=== PATIENT | male | born 1945 | race Caucasian/White ===

== ENCOUNTER 2018-03-24 03:09 | Outpatient (CLI) | payer MEDICARE, SELFPAY ==
[2018-03-24 11:48] LABS: Anion Gap 7.2 mmol/L (3-11); BUN 18 mg/dL (7-18); CO2 30.8 mmol/L (21.0-32.0); CREATININE 1.32 mg/dL (0.70-1.30); Calcium 9.8 mg/dL (8.5-10.1); Chloride 106 mmol/L (98-107); Estimated GFR 53.47 (mL/min/1.73m2); Glucose 83 mg/dL (70-100); Potassium 4.7 mmol/L (3.5-5.1); Sodium 144 mmol/L (136-145)
== END 2018-03-24 03:29 ==
PROVIDERS: PCP Family Medicine; Visit Provider Family Medicine
DX: I10 Essential (primary) hypertension (principal)
CPT/HCPCS: 36415; 80048

== ENCOUNTER 2019-01-01 02:24 | Outpatient (CLI) | payer MEDICARE, OTHER, SELFPAY ==
--- NOTE | 2019-01-01 14:09 | DI.US_ITS ---
EXAM: US RENAL CLINICAL HISTORY: PASSED KIDNEY STONES FOR FIRST TIME, CALCULUS OF KIDNEY,N20.0 TECHNIQUE: Ultrasound performed using standard protocol. COMPARISON: ABDOMEN ULTRASOUND (P) from 02/18/2012 FINDINGS: Right kidney measures 10.5 cm in length. The left kidney measures 10.4 cm in length. No stones or h ydronephrosis is seen. The prevoid bladder volume measures 323 cc. There is postvoid residual of 22 cc. No bladder calculi or bladder masses are seen. Both ureteral jets were visualized. The prosta te is enlarged with a volume of 67 cc. IMPRESSION: Enlarged prostate. No evidence of hydronephrosis or renal calculi.
== END 2019-01-01 02:44 ==
PROVIDERS: PCP Family Medicine; Visit Provider Family Medicine
DX: N20.0 Calculus of kidney (principal)
CPT/HCPCS: 76770

== ENCOUNTER 2019-03-29 00:17 | Outpatient (CLI) | payer MEDICARE, OTHER, SELFPAY ==
[2019-03-29 10:43] LABS: Anion Gap 5.8 mmol/L (3-11); BUN 21 mg/dL (7-18); CO2 32.2 mmol/L (21.0-32.0); CREATININE 1.25 mg/dL (0.70-1.30); Calculated LDL 122 mg/dL (<100); Chloride 106 mmol/L (98-107); Cholesterol 216 mg/dL (<200); Estimated GFR 56.78 (mL/min/1.73m2); Glucose 88 mg/dL (74-106); HDL Cholesterol 68 mg/dL (40-60); Potassium 4.8 mmol/L (3.5-5.1); Sodium 144 mmol/L (136-145); Triglyceride 133 mg/dL (<150)
== END 2019-03-29 00:37 ==
PROVIDERS: PCP Family Medicine; Visit Provider Family Medicine
DX: E78.00 Pure hypercholesterolemia, unspecified (principal); I10 Essential (primary) hypertension
CPT/HCPCS: 36415; 80048; 80061

== ENCOUNTER 2020-06-18 02:59 | Outpatient (CLI) | payer MEDICARE, OTHER, SELFPAY ==
[2020-06-18 12:29] LABS: HCT 43.3 % (40.0-50.0); MCH 29.9 pg (27.0-33.0); MCHC 32.3 % (32.0-36.0); MCV 92.5 fL (80-95); MPV 12.3 fL (8.0-11.0); Platelet Count 234 10^3/uL (130-400); RBC 4.68 10^6/uL (4.36-5.78); RDW 12.5 % (11.8-14.1); RDW-SD 42.7 fL; WBC 6.22 10^3/uL (4.4-10.8)
[2020-06-18 13:26] LABS: ALT 28 U/L (16-63); AST 15 U/L (15-37); Albumin 3.9 g/dL (3.4-5.0); Alkaline Phosphatase 89 U/L (46-116); Anion Gap 6.9 mmol/L (3-11); BUN 21 mg/dL (7-18); Bilirubin, Total 0.6 mg/dL (0.2-1.0); CO2 31.1 mmol/L (21.0-32.0); CREATININE 1.4 mg/dL (0.70-1.30); Calcium 9.9 mg/dL (8.5-10.1); Calculated LDL 109 mg/dL (<100); Chloride 106 mmol/L (98-107); Cholesterol 203 mg/dL (<200); Estimated GFR 49.68 (mL/min/1.73m2); Glucose 84 mg/dL (74-106); HDL Cholesterol 69 mg/dL (40-60); Potassium 4.9 mmol/L (3.5-5.1); Sodium 144 mmol/L (136-145); Total Protein 7.4 g/dL (6.4-8.2); Triglyceride 126 mg/dL (<150)
== END 2020-06-18 03:00 | disposition home or self-care (01) ==
LOC: LOS 02:59
PROVIDERS: PCP Family Medicine; Visit Provider Nurse Practitioner Family
DX: I10 Essential (primary) hypertension (principal); E78.00 Pure hypercholesterolemia, unspecified; R25.2 Cramp and spasm
CPT/HCPCS: 36415; 80053; 80061; 85027

== ENCOUNTER 2020-10-21 18:05 | Outpatient (CLI) | payer MEDICARE, OTHER, SELFPAY ==
--- NOTE | 2020-10-21 | DI.RAD_ITS ---
Exam(s) XR SHOULDER LT COMPLETE 2+V EXAM: XR SHOULDER LT COMPLETE 2+V CLINICAL HISTORY: questionable dislocated shoulder. TECHNIQUE: 2D digital imaging was performed. COMPARISON: No exams were available for comparison FINDINGS: BONES: No acute fracture is present. No bony destructive lesion is seen. The bones are osteopenic. JOINTS: The glenohumeral joint is intact. There is a grade 2 acromioclavicular joint separation. SOFT TISSUE: Normal. IMPRESSION: Left acromioclavicular joint separation. DATA REPOSITORY: RADIATION DOSE DELIVERED:
== END 2020-10-21 18:25 ==
LOC: DI 19:45
PROVIDERS: PCP Nurse Practitioner Family; Visit Provider Nurse Practitioner Family
DX: S43.102A Unspecified dislocation of left acromioclavicular joint, initial encounter (principal); X58.XXXA Exposure to other specified factors, initial encounter
CPT/HCPCS: 73030

== ENCOUNTER 2020-10-21 19:40 | Emergency (ER) | payer MEDICARE, OTHER, SELFPAY ==
[2020-10-21 19:48] VITALS: BP 158/82; PULSE 91; RESP 16; TEMP 36.8; O2SAT 98
--- NOTE | 2020-10-21 20:10 | ED.GENADUL_ITS ---
Discharge Plan Disposition Patient Disposition: HOME Condition: Stable Discharge Details Clinical Impression: Acromioclavicular joint separation Primary Care Provider: Jaiden Elizabeth ED Provider: Skye Rodgers Home Meds and New Rx's Prescriptions: Continued Alive Multivitamin PO RF: 0 cholecalciferol (vitamin D3) 1,000 unit capsule 1,000 unit PO DAILY RF: 0 lisinopril 10 mg tablet 10 mg PO DAILY Qty: 90 RF: 4 fluticasone propionate 50 mcg/actuation spray,suspension 2 spray NS DAILY Qty: 1 RF: 5 glucosamine [id number] 1 EACH tablet 1 ea PO BID RF: 0 Discharge Instructions Instructions: Acromioclavicular Separation (ED) Additional Instructions: X-ray shows separation of your acromioclavicular joint space. This is treated with sling. Please encourage rest, ice, elevation. Tylenol and/or ibuprofen as needed for discomfort. You will need follow-up with orthopedics, please call tomorrow to schedule follow-up appointment. If you develop any new or worsening symptoms please seek care urgently once again. Referrals: Edward Vidales MD [ [facility] STAFF PHYSICIAN] - Discharge Data Discharge Date/Time-TO BE ENTERED AT DEPARTURE: 10/21/20 20:30 Medical Decision Making Patient is a pleasant [id number] 75-year-old male presenting today with chief complaint of left shoulder injury. Patient was initially seen in urgent care. Outpatient x-ray was ordered. However, they have subsequently closed and patient was referred here for results and treatment. There is concern for pos sible dislocation. Patient was fit with a sling. Here the sling is comfortable and is helping with his pain. Injury occurred when he was playing golf head and excellently fell striking his left shoulder. He denies other injury the time of the incident. Denies hitting his head, no LOC. Denies any numbness or tingling. Denies any neck pain. On exam, patient appears nontoxic. He is swelling and deformity over the left AC joint. Neurovascularly intact. 2+ distal pulses. Axial nerve testing intact. X-ray reviewed by radiologist: FINDINGS: Bones/joints: No evidence of fracture. The glenohumeral joint is appropriately located. Acromial humeral space is maintained. The acromion is positioned inferior to the distal clavicle. The acromioclavicular joint approximately 9 mm wide, mildly abnormal. Coricoclavicular relationships are normal. Soft tissues: Normal. IMPRESSION: Acromioclavicular separation, grade 2. Discussed these findings with the patient. He will continue with sling. Will refer to orthopedics. I asked that he call tomorrow to schedule follow-up appointment. Encourage rest, ice, elevation. Tylenol and ibuprofen as needed for discomfort. All other questions or concerns were addressed and he is in agreement with this plan. HPI General Mode of arrival: ambulatory . Date/Time Provider Initiated Documentation: 10/21/20 20:02 . Limitations to Documentation: no limitations . Information obtained by: patient, RN/MD (called by urgent care provider) and RN notes reviewed . History of Present Illness 75 year old M presents to the emergency department with the chief complaint of left shoulder injury, described as mild, with intensity rated at 1. Quality is described as aching, and is localized to the left and upper extremity. Patient reports no radiation. Patient started experiencing this hour(s) and it has been constant. Immobilization improves symptom(s), Movement worsens symptoms . Patient notes no other symptoms.. Patient did receive the following treatments prior to arrival, other (sling) Related Data Home Medications Medication Instructions Recorded Confirmed glucosamine [id number] 1 ea PO BID 02/15/13 10/21/20 Alive Multivitamin PO 03/21/18 08/14/20 cholecalciferol (vitamin D3) 25 1,000 unit PO DAILY 03/21/18 10/21/20 mcg (1,000 unit) capsule fluticasone propionate 50 2 spray NS DAILY #1 inh 07/31/20 10/21/20 mcg/actuation nasal spray,suspension lisinopril 10 mg tablet 10 mg PO DAILY #90 tab 07/31/20 10/21/20 Previous Rx's Medication Instructions Recorded fluticasone propionate 50 2 spray NS DAILY #1 inh 07/31/20 mcg/actuation nasal spray,suspension lisinopril 10 mg tablet 10 mg PO DAILY #90 tab 07/31/20 Allergies Allergy/AdvReac Type Severity Reaction Status Date / Time codeine Allergy Unknown Verified 10/21/20 19:52 General Stated Complaint: Orthopedic JUDI: 4 Review of Systems Constitutional Constitutional: Reports as per HPI, Denies chills and Denies fever(s) Musculoskeletal Musculoskeletal: Reports as per HPI and Denies tingling Integumentary/Breasts Skin/Breast: Reports as per HPI, Denies rash and Denies wounds Neurologic Neurologic: Reports as per HPI, Denies tingling and Denies paresthesias [facility] Medical History (Updated 10/21/20 @ 20:14 by CARLOS EDUARDO Parker) Squamous cell carcinoma Family History (Updated 06/18/20 @ 14:17 by Ayanna Mas) Mother Neoplasm UTERINE Father Aortic aneurysm Grandfather Heart disease Grandmother Diabetes Social History (Updated 06/18/20 @ 14:16 by Ayanna Mas) Smoking/Tobacco Use Status: Never Second Hand Exposure: Yes Smoking risk assessment performed?: Yes Alcohol Intake: current Alcohol Intake frequency: holidays/special occasions only Alcohol type: wine Drug use: Never Substance use type: does not use Caregiver/Support person: No Household members: spouse Housing: house Communication Needs: Hard of Hearing Do you need help understanding health information?: Never current occupation: retired Pets and animals: No Sexually active: No Do you think of yourself as: straight/heterosexual Current gender identity: male What is your relationship status?: How often do you talk on the phone with friends or family?: decline to answer How often do you get together with friends or relatives?: twice per week How often do you attend islam or roman catholic services?: decline to answer Do you belong to any clubs or organized social groups?: yes Panel score (0-1 are the most socially isolated patients): 2 What type of physical activity do you participate in: weight lifting Duration: 15-30 minutes/day Frequency: 3-4 times per week Special tia needs: No Seatbelt use: always Drive intox or ride w/intox motor coach driver: No Do you feel safe at home: Yes Do you feel safe in your relationship?: Yes Exam Const General: cooperative, healthy appearing, comfortable, no acute distress, well developed and well groomed Nutritional Appearance: average body habitus and well nourished Orientation: alert and awake Resp Effort & Inspection: normal respiratory effort, able to speak in complete sentences and no respiratory distress Cardio Rate: regular rate Rhythm: regular rhythm Skin General skin exam: no rashes or lesions noted Lesions: no lesions Rashes: no rashes Trauma: no lacerations or abrasions Neuro General: patient alert and patient awake Cognition: normal cognition Speech: speech normal Gait: normal gait Motor: muscle tone normal throughout Sensory Exam: no sensory deficits noted Extrem Shoulder/upper arm images: 1. ARea of swelling and pain. Palpable deformity to AC joint. GH joint appears intact without deformity or pain with palpation. Full ROM of elbow, wrist, hand. Axial nerve intact. Sensation intact. 2+ distal pulses Psych Appearance: grossly normal and well kempt Mental Status: mental status grossly normal Speech and Movement: speech and movement normal Course Vital Signs Vital signs: Vital Signs Temperature 36.8 C 10/21/20 19:48 Pulse 91 H 10/21/20 19:48 Respiratory Rate 16 10/21/20 19:48 Blood Pressure 158/82 H 10/21/20 19:48 Pulse Oximetry 98 10/21/20 19:48 Temperature 36.8 C 10/21/20 19:48 Temperature Source Oral 10/21/20 19:48 Pulse 91 H 10/21/20 19:48 Respiratory Rate 16 10/21/20 19:48 Respiratory Effort Non-Labored 10/21/20 19:53 Blood Pressure 158/82 H 10/21/20 19:48 Blood Pressure Position Sitting 10/21/20 19:48 Pulse Oximetry 98 10/21/20 19:48 Oxygen Delivery Method Room Air 10/21/20 19:48 Oxygen Flow Rate 0 10/21/20 19:48 Pain Level 1 10/21/20 19:48
[2020-10-21 20:26] VITALS: BP 144/80; PULSE 85; RESP 20; TEMP 36.7; O2SAT 96
== END 2020-10-21 20:30 | disposition home or self-care (01) ==
PROVIDERS: Emergency Provider Physician Assistant; PCP Nurse Practitioner Family
DX: S43.102A Unspecified dislocation of left acromioclavicular joint, initial encounter (principal); W18.39XA Other fall on same level, initial encounter
CPT/HCPCS: 99283; 73030

== ENCOUNTER → 2020-11-05 09:25 | Outpatient (BNVA) | payer MEDICARE, OTHER, SELFPAY | PROVIDERS: PCP Nurse Practitioner Family; Referring Provider Nurse Practitioner Family | DX: S43.102A Unspecified dislocation of left acromioclavicular joint, initial encounter (principal); X58.XXXA Exposure to other specified factors, initial encounter | CPT/HCPCS: 99203 ==

== ENCOUNTER 2021-06-30 02:45 | Outpatient (CLI) | payer MEDICARE, SELFPAY ==
[2021-06-30 13:00] LABS: CREATININE 1.2 mg/dL (0.70-1.30); Estimated GFR 59.18 (mL/min/1.73m2)
== END 2021-06-30 02:46 | disposition home or self-care (01) ==
LOC: LOS 02:45
PROVIDERS: PCP Nurse Practitioner Family; Visit Provider Nurse Practitioner Family
DX: N28.9 Disorder of kidney and ureter, unspecified (principal)
CPT/HCPCS: 36415; 82565

== ENCOUNTER 2022-07-07 04:29 | Outpatient (CLI) | payer MEDICARE, SELFPAY ==
[2022-07-07 12:07] LABS: CREATININE 1.4 mg/dL (0.70-1.30); Estimated GFR 52.41 (mL/min/1.73m2); Potassium 4.3 mmol/L (3.5-5.1)
== END 2022-07-07 04:30 | disposition home or self-care (01) ==
PROVIDERS: PCP Nurse Practitioner Family; Visit Provider Nurse Practitioner Family
DX: N28.9 Disorder of kidney and ureter, unspecified (principal); R03.0 Elevated blood-pressure reading, without diagnosis of hypertension
CPT/HCPCS: 36415; 82565; 84132

== ENCOUNTER 2023-08-26 17:09 | Outpatient (REF) | payer MEDICARE, SELFPAY ==
[2023-08-26 16:15] LABS: Anion Gap 7.1 mmol/L (3-11); BUN 26 mg/dL (7-18); CO2 32.9 mmol/L (21.0-32.0); CREATININE 1.4 mg/dL (0.70-1.30); Calcium 10.2 mg/dL (8.5-10.1); Chloride 105 mmol/L (98-107); Estimated GFR 52.09 (mL/min/1.73m2); Glucose 96 mg/dL (74-106); Potassium 4.5 mmol/L (3.5-5.1); Sodium 145 mmol/L (136-145)
== END 2023-08-26 17:10 | disposition home or self-care (01) ==
LOC: NCHCN 17:09
PROVIDERS: PCP Family Medicine; Visit Provider Family Medicine
DX: N28.9 Disorder of kidney and ureter, unspecified (principal)
CPT/HCPCS: 80048

== ENCOUNTER 2023-08-28 15:11 | Emergency (ER) | payer MEDICARE, SELFPAY ==
[2023-08-28] VITALS (72 sets, daily range): BP systolic 143–217; BP diastolic 49–146; PULSE 68–103; RESP 10–29; TEMP 36.2; O2SAT 94–100
--- NOTE | 2023-08-28 15:15 | RT.EKG_ITS ---
APPROVED REPORT Exam: Resting ECG Reason for Exam: dizziness Patient Location: E HR:82 bpm ECG Measurements Heart Rate 82 AXIS MD 161 P 52 QRSd 142 QRS -46 QT 437 T 51 QTc 509 Conclusion Sinus rhythm...normal P axis, V-rate 60- 99 Atrial premature complex...SV complex w/ short R-R interval RBBB and LAFB...QRSd >120mS, axis(-40,240) Probable left ventricular hypertrophy...(RaVL+SV3)xQRSd >280 Lateral infarct, old...Q>40mS, flat T, V5 V6 I aVL sinus rhythm, left axis, bifascicular block
--- NOTE | 2023-08-28 15:30 | DI.CT_ITS ---
Exam(s) CT BRAIN NECK CTA EXAM: CT BRAIN NECK CTA CLINICAL HISTORY: unsteady gait, HTN. TECHNIQUE: Imaging Protocol: Axial CT angiography was performed with multi-slice acquisition and mu lti-planar and/or 3D reconstructions. CONTRAST MATERIAL: Intravenous: Omnipaque 350 contrast volume:85 mL COMPARISON: No exams were available for comparison FINDINGS: CT Head W/O and W: Ventricles and Extra axial spaces: Normal in size and morphology for the patient's age. Hemorrhage: Please see the section under cerebral parenchyma. Cerebral parenchyma: There are areas of decreased attenuation in the white matter suggesting chronic microvascular ischemic disease. No mass effect is identified. There is an area of increased attenua tion superior and lateral to the left lateral ventricle measuring 6 x 6 mm. (Series 6, image 38). Midline shift: None. Brainstem/Cerebellum: Normal. Calvarium: Normal. Visualized Paranasal sinuses/Mastoids: Small mucous retention cysts or polyps are seen in the maxilla ry sinuses bilaterally. The remaining visualized paranasal sinuses and mastoid air cells are clear. Soft Tissues: Unremarkable. Enhancement: Unremarkable. CTA Neck W: There is artifact from the patient's dental work. Common Carotid: Right: No dissection, occlusion or significant stenosis. Left: No dissection, occlusion or significant stenosis. External Carotid: Right: No occlusion or significant stenosis. Left: No occlusion or significant stenosis. Internal Carotid: Right: No dissection, occlusion or significant stenosis. Left: No dissection, occlusion or significant stenosis. Vertebral Artery: Right: No dissection, occlusion or significant stenosis. Left: No dissection, occlusion or significant stenosis. Lung Apices: Note is made of an azygos lobe. Bones: Within normal limits for the patient's age. Soft Tissues: Normal. Thyroid gland: There are multiple thyroid nodules. The largest is in the right lobe it measures at l east 3.2 cm. Nonemergent thyroid ultrasound is recommended for further evaluation. CTA Brain W: Internal Carotid Arteries: No evidence of occlusion or significant stenosis. Anterior Cerebral Arteries: Right: No aneurysm, occlusion or significant stenosis. Left: No aneurysm, occlusion or significant stenosis. Middle Cerebral Arteries: Right: No aneurysm, occlusion or significant stenosis. Left: No aneurysm, occlusion or significant stenosis. Posterior Cerebral Arteries: Right: No aneurysm, occlusion or significant stenosis. Left: No aneurysm, occlusion or significant stenosis. Vertebral Arteries: Right: No aneurysm, occlusion or significant stenosis. Left: No aneurysm, occlusion or significant stenosis. Basilar Artery: No aneurysm, occlusion or significant stenosis. IMPRESSION: 1. No large vessel occlusion or significant stenosis on the CT angiography of the head. 2. There is a 0.6 x 0.6 cm area of increased attenuation superior and lateral to the left lateral adrienne tricle. Differential considerations include vascular malformation, hemorrhage or possible mass. A f ollow-up MRI without and with contrast is recommended for further evaluation. 3. No occlusion or significant stenosis on the CT angiography of the neck. Unexpected findings RADIATION DOSE DELIVERED: Total DLP DATA REPOSITORY: All CT scans at this facility are submitted to the National Radiology Data Registry (NRDR) Dose Index Registry (DIR) with the [employer] (ACR). RADIATION OPTIMIZATION: All CT scans at this facility use at least one of these dose optimization te chniques: automated exposure control; mA and/or kV adjustment per patient size (includes targeted exa ms where dose is matched to clinical indication); or iterative reconstruction.
--- NOTE | 2023-08-28 15:43 | ED.GENADUL_ITS ---
Discharge Plan Discharge Details Chief Complaint: Dizzy/Sync Primary Care Provider: Roxanne Garcia ED Provider: Farooq Boswell Home Meds and New Rx's Prescriptions: No Action Alive Multivitamin PO cholecalciferol (vitamin D3) 1,000 unit capsule 1,000 unit PO DAILY magnesium glycinate 100 mg tablet 400 mg PO DAILY glucosamine [id number] 1 EACH tablet 1 ea PO BID fluticasone propionate 50 mcg/actuation spray,suspension 2 spray NS DAILY Qty: 3 3RF HPI General Date/Time Provider Initiated Documentation: 08/28/23 15:32 . HPI Narrative: 78-year-old male presents with dizziness sensation of off balance over the last hour in setting of elevated blood pressure. Was prescribed antihypertensive within the last month however stopped taking it as his diastolic blood pressure was low and he [place]. Patient Nu[place] chest pain nausea vomiting shortness of breath or other systemic signs of illness Related Data Home Medications ?Medication ?Instructions ?Recorded ?Confirmed glucosamine HCl 500 mg-msm 83 1 ea PO BID 02/15/13 08/28/23 mg-chondroitin 400 mg tablet Alive Multivitamin PO 03/21/18 06/30/22 cholecalciferol (vitamin D3) 25 1,000 unit PO DAILY 03/21/18 08/28/23 mcg (1,000 unit) capsule magnesium glycinate 100 mg (as 400 mg PO DAILY 06/24/21 08/28/23 glycinate) tablet fluticasone propionate 50 2 spray NS DAILY #3 inhalations 01/12/23 08/28/23 mcg/actuation nasal spray,suspension Previous Rx's ?Medication ?Instructions ?Recorded fluticasone propionate 50 2 spray NS DAILY #3 inhalations 01/12/23 mcg/actuation nasal spray,suspension Allergies Allergy/AdvReac Type Severity Reaction Status Date / Time codeine Allergy Unknown Unknown Verified 08/28/23 15:19 General Stated Complaint: Dizzy/Sync JUDI: 3 Exam Narrative Exam Narrative: Alert oriented interactive Moist mucous membranes tolerating secretions Sinus rhythm normal rate no murmurs rubs or gallops Lungs clear speaking full sentences Moving all extremities 5 and 5 strength upper and lower extremities bilaterally cranial nerves II through XII intact, sensation intact bilaterally, no truncal ataxia, normal speech Course Vital Signs Vital signs: Vital Signs Temperature 36.2 C L 08/28/23 15:15 Pulse 82 08/28/23 15:15 Respiratory Rate 16 08/28/23 15:15 Blood Pressure 217/74 H 08/28/23 15:15 Pulse Oximetry 98 08/28/23 15:15 Temperature 36.2 C L 08/28/23 15:15 Temperature Source Skin 08/28/23 15:15 Pulse 82 08/28/23 15:15 Respiratory Rate 16 08/28/23 15:15 Blood Pressure 217/74 H 08/28/23 15:15 Blood Pressure Position Sitting 08/28/23 15:15 Pulse Oximetry 98 08/28/23 15:15 Oxygen Delivery Method Room Air 08/28/23 15:15 Oxygen Flow Rate 0 08/28/23 15:15 Pain Level 0 08/28/23 15:15 Medical Decision Making 78-year-old male history of hypertension presents with dizzy off-balance sensation in the setting of elevated blood pressure, patient recently discontinued his antihypertensives as his diastolic blood pressure was low and he had a fall [place] the golf [place] within the last couple of weeks, denies headache chest pain shortness of breath nausea vomiting or other systemic signs of illness, hemodynamically stable noted to be hypertensive with blood pressures in the 200s over 90s; cranial nerves II through XII intact 5 5 strength upper lower extremities bilaterally sensation intact, normal speech, no truncal ataxia noted; consider symptomatic hypertension versus hypertensive emergency versus CVA was also consider electrolyte derangement lower suspicion for dehydration muscles consider atypical ACS lower suspicion for aortic pathology PE or pneumon ia. Screening labs imaging close reassessment disposition presenting result. Trial of hydroxyzine IV for blood pressure control 17: 26 patient resting comfortably blood pressure responded to hydralazine now 170 systolic, feeling symptomatically improved was ambulatory feeling better on his feet. Awaiting results of CTA head and neck for disposition Quality:SDOH Health Related Social Needs: No Data to Display PFSH All Active Problems (Updated 06/30/22 @ 15:54 by Jaiden Elizabeth NP) White coat syndrome with high blood pressure but without hypertension (Acute) Renal insufficiency (Chronic) AC separation, type 2 (Acute 10/21/20) Hypercholesterolemia (Acute 01/15/08) Muscle cramps (Acute 03/11/15) Sensory hearing loss, bilateral (Acute 04/01/14) Medical History (Updated 06/30/22 @ 15:54 by Jaiden Elizabeth NP) Squamous cell carcinoma Family History (Updated 06/18/20 @ 14:17 by Ayanna Mas) Mother Neoplasm UTERINE Father Aortic aneurysm Grandfather Heart disease Grandmother Diabetes Social History (Updated 06/18/20 @ 14:16 by Ayanna Mas) Smoking/Tobacco Use Status: Never Second Hand Exposure: Yes Smoking risk assessment performed?: Yes Alcohol Intake: current Alcohol Intake frequency: holidays/special occasions only Alcohol type: wine Drug use: Never Substance use type: does not use Caregiver/Support person: No Household members: spouse Housing: house Communication Needs: Hard of Hearing Do you need help understanding health information?: Never current occupation: retired Pets and animals: No Sexually active: No Do you think of yourself as: straight/heterosexual Current gender identity: male What is your relationship status?: How often do you talk on the phone with friends or family?: decline to answer How often do you get together with friends or relatives?: twice per week How often do you attend christianity or voodoo services?: decline to answer Do you belong to any clubs or organized social groups?: yes Panel score (0-1 are the most socially isolated patients): 2 What type of physical activity do you participate in: weight lifting Duration: 15-30 minutes/day Frequency: 3-4 times per week Special tia needs: No Seatbelt use: always Drive intox or ride w/intox wheelchair driver: No Do you feel safe at home: Yes Do you feel safe in your relationship?: Yes
[2023-08-28 15:51] LABS: Abs Immature Grans 0.01 10^3/uL (0.0-0.06); Absolute Basophil Count 0.03 10^3/uL (0.0-0.2); Absolute Lymphocyte Count 1.85 10^3/uL (1.2-3.4); Absolute Monocyte Count 0.65 10^3/uL (0.1-0.8); Absolute Neutrophil Count 2.55 10^3/uL (1.2-6.7); Basophils % 0.6 %; Eosinophils % 3.8 %; HCT 41.8 % (40.0-50.0); HGB 13.8 g/dL (13.5-17.5); Immature Grans % 0.2 %; MCH 30.3 pg (27.0-33.0); MCV 92 fL (80-95); MPV 11.8 fL (8.0-11.0); Monocytes % 12.3 %; Neutrophils % 48.1 %; Platelet Count 232 10^3/uL (130-400); RBC 4.56 10^6/uL (4.36-5.78); RDW 12.8 % (11.8-14.1); RDW-SD 42.7 fL; WBC 5.29 10^3/uL (4.4-10.8)
[2023-08-28] MEDS: hydrALAZINE 20 MG/ML VIAL 10 MG IVP ×3 (15:58→21:50)
[2023-08-28 16:00] LABS: INR 1.1 (0.9-1.1); PTT Activated 26.4 sec (23.6-32.8)
[2023-08-28 16:09] LABS: ALT 25 U/L (16-63); AST 17 U/L (15-37); Albumin 3.7 g/dL (3.4-5.0); Alkaline Phosphatase 86 U/L (46-116); Anion Gap 8.8 mmol/L (3-11); BUN 25 mg/dL (7-18); Bilirubin, Total 0.47 mg/dL (0.2-1.0); CO2 31.2 mmol/L (21.0-32.0); CREATININE 1.4 mg/dL (0.70-1.30); Calcium 9.7 mg/dL (8.5-10.1); Chloride 105 mmol/L (98-107); Estimated GFR 52.09 (mL/min/1.73m2); Glucose 123 mg/dL (74-106); Magnesium 2.1 mg/dL (1.8-2.4); NT-proBNP 297 pg/mL (<300); Potassium 4.3 mmol/L (3.5-5.1); Sodium 145 mmol/L (136-145); Total Protein 7.6 g/dL (6.4-8.2); Troponin I < 50 ng/L (< or =60)
[2023-08-28] MEDS: Omnipaque 350 MG/ML 100 ML BTL IJ (16:26)
[2023-08-28] MEDS: Normal Saline - Diluent 50 ML VIAL IJ ×2 (16:26→22:22)
--- NOTE | 2023-08-28 17:36 | DI.VRAD_ITS ---
Addendum created by Jose Vargas DO on 08/28/2023 6:36:59 PM EDT: THIS REPORT CONTAINS FINDINGS THAT MAY BE CRITICAL TO PATIENT CARE. The findings were verbally communicated via telephone conference at 6:36 PM EDT on 08/28/2023 with Farooq Boswell. The findings were acknowledged and understood. Initial report created on 08/28/2023 5:35:53 PM EDT: PROCEDURE INFORMATION: Exam: CTA Head Without And With Contrast, Arteriography Exam date and time: 08/28/2023 4:40 PM Age: 78 years old Clinical indication: Other: Unsteady gait, HTN TECHNIQUE: Imaging protocol: Computed tomographic angiography of the head without and with contrast. Exam focused on the arteries. 3D rendering (Not supervised by radiologist): MIP and/or 3D reconstructed images were created by the technologist. Contrast material: 350; Contrast volume: 85 ml; Contrast route: INTRAVENOUS (IV); COMPARISON: No relevant prior studies available. FINDINGS: ANTERIOR CIRCULATION: Right internal carotid artery: Intracranial segment is patent with no significant stenosis or occlusion. No aneurysm. Right middle cerebral artery: No occlusion or significant stenosis. No aneurysm. Right anterior cerebral artery: No occlusion or significant stenosis. No aneurysm. Left internal carotid artery: Intracranial segment is patent with no significant stenosis. No aneurysm. Left middle cerebral artery: No occlusion or significant stenosis. No aneurysm. Left anterior cerebral artery: No occlusion or significant stenosis. No aneurysm. POSTERIOR CIRCULATION: Right vertebral artery: No occlusion or significant stenosis. No aneurysm. Left vertebral artery: No occlusion or significant stenosis. No aneurysm. Basilar artery: No occlusion or significant stenosis. No aneurysm. Right posterior cerebral artery: No occlusion or significant stenosis. No aneurysm. Left posterior cerebral artery: No occlusion or significant stenosis. No aneurysm. HEAD: Brain: Storm-white matter differentiation is within normal limits. No mass effect or midline shift. Mild nonspecific patchy foci of periventricular white matter hypodensity, probably age appropriate chronic small vessel ischemic changes. There is a focal 0.6 x 0.5 x 0.7 cm hyperdensity in the left precentral gyrus adjacent to the central sulcus (38 series 6, 29 series 9, 41 series 8). There is no significant perilesional edema. Sulci and basilar cisterns are prominent due to parenchymal volume loss. No extra-axial fluid collection. There is sebaceous cyst in frontal scalp. scalp. Cerebral ventricles: Normal. No ventriculomegaly. Bones: Unremarkable. No acute fracture. Paranasal sinuses: Small retention cyst in the bilateral maxillary sinuses. Mastoid air cells: Visualized mastoids are normal. No mastoid effusion. Soft tissues: There is a 2.7 x 4.4 cm subgaleal lipoma in the left parietal scalp (643 series 15). IMPRESSION: 1. No large vessel occlusion or hemodynamically significant stenosis in the arteries of the [id number]. 2. There is a 0.6 x 0.5 x 0.7 cm hyperdense lesion in the left precentral gyrus adjacent to the central sulcus without significant surrounding edema. Differential consideration may include small microhemorrhage versus vascular or cavernous malformations. Mass/ lesion is felt to be less likely as there is no significant surrounding edema or mass effect. Follow-up may be considered with MRI with IV contrast. PROCEDURE INFORMATION: Exam: CTA Neck Without And With Contrast Exam date and time: 08/28/2023 4:40 PM Age: 78 years old Clinical indication: Other: Unsteady gait, HTN TECHNIQUE: Imaging protocol: Computed tomographic angiography of the neck without and with contrast. Exam focused on the cervical segments of the vasculature. 3D rendering (Not supervised by radiologist): MIP and/or 3D reconstructed images were created by the technologist. Contrast material: 350; Contrast volume: 85 ml; Contrast route: INTRAVENOUS (IV); COMPARISON: CR XR SHOULDER LT COMPLETE 2+V 10/21/2020 8:04 PM FINDINGS: Right common carotid artery: No stenosis. No dissection or occlusion. Right internal carotid artery: No stenosis of the extracranial segment. No dissection or occlusion. Right external carotid artery: No occlusion or stenosis of the origin. Left common carotid artery: No stenosis. No dissection or occlusion. Left internal carotid artery: No stenosis of the extracranial segment. No dissection or occlusion. Left external carotid artery: No occlusion or stenosis of the origin. Right vertebral artery: No stenosis. No dissection or occlusion. Left vertebral artery: No stenosis. No dissection or occlusion. Thyroid: There are nodules in the bilateral thyroid lobes. There is heterogeneous 3.7 x 2.4 cm axial x 3.5 cm craniocaudal nodule in the right lobe of the thyroid gland with macrocalcifications. Ultrasound correlation is recommended. Soft tissues: Normal. No significant soft tissue swelling. Bones/joints: No acute fracture. IMPRESSION: 1. No stenosis or occlusion in the arteries of the neck. 2. Multiple nodules in the bilateral lobes of the thyroid gland, dominant nodule is 3.7 cm with macrocalcification. Ultrasound correlation is recommended. REFERENCES: NASCET CRITERIA. The degree of stenosis in the cervical segment of the internal carotid artery is based on NASCET criteria. Normal is no stenosis. Mild is less than 50% stenosis. Moderate is 50-69% stenosis. Severe is 70% to 99% stenosis. Total occlusion is no detectable patent lumen. Dictated and Authenticated by: Jose Vargas MD. Ordering:LIZBETH Trivedi MD
--- NOTE | 2023-08-28 19:03 | W.EDPROG ---
Date of service: 08/28/23 Time of Service: 19:03 Medical Decision Making Care assumed from off going provider pending evaluation by teleneurology. 1835 Discussed with Rico francis radiologist. He reports there is no large vessel occlusion. He reports that there is a hyperdense lesion in the frontal lobe area that does not have any surrounding edema. He thinks this is a possible microhemorrhage versus vascular malformation. He states because there is no surrounding edema he is not sure that there is active bleeding. And recommends an MRI. Given the inconclusive findings I will continue further blood pressure control with IV hydralazine and oral norvasc. 2009 Patient has completed teleneurology evaluation. The neurologist and I spoke. He reports that the patient has a nonfocal examination including normal gait, normal tandem walking and a negative Romberg. He has reviewed imaging and is concerned that this left frontal parietal lesion is a hypertensive hemorrhage. He is recommending non emergent MRI, neurocritical care monitoring, blood pressure control with a systolic blood pressure less than 140. I have ordered IV nicardipine infusion for blood pressure control, goal SBP <140. I reached out to [facility] to initiate this process and get an accepting physician. I have updated the patient on this plan. 2100 Accepted to Neuro step down, by Dr. Alfaro Quality:SD[facility] Health Related Social Needs: No Data to Display Critical Care Time Critical Care Time Critical Care Time: Yes Total Critical Care Time: 34 Attestation: CRITICAL CARE Upon my evaluation, this patient had a high probability of imminent or life-threatening deterioration due to hypertensive emergency, ICH which required my direct attention, intervention, and personal management. I have personally provided 34 minutes of critical care time exclusive of time spent on separately billable procedures. Time includes review of laboratory data, radiology results, discussion with consultants, and monitoring for potential decompensation. Interventions were performed as documented above Sign Out Sign Out Data: Sign Out Comment: dizziness and subjective unsteady gate in setting of HTN; responded well to hydralazine with improved symptoms; CTA lesion, called for tele neuro consult Last updated by Farooq Boswell MD at 08/28/23 17:55 Discharge Plan Disposition Patient Disposition: Transfer-Acute Inpatient Care Specific Acute Inpt Facility: [facility] Condition: Fair Discharge Details Chief Complaint: Dizzy/Sync Clinical Impression: Hypertensive emergency, ICH (intracerebral hemorrhage) Primary Care Provider: Roxanne Garcia ED Provider: Christiano Beltran Home Meds and New Rx's Prescriptions: No Action Alive Multivitamin PO cholecalciferol (vitamin D3) 1,000 unit capsule 1,000 unit PO DAILY magnesium glycinate 100 mg tablet 400 mg PO DAILY glucosamine [id number] 1 EACH tablet 1 ea PO BID fluticasone propionate 50 mcg/actuation spray,suspension 2 spray NS DAILY Qty: 3 3RF
[2023-08-28] MEDS: amLODIPine 5 MG TAB PO (19:08)
[2023-08-28 19:20] LABS: Troponin I < 50 ng/L (< or =60)
[2023-08-28] MEDS: niCARdipine 25 MG in Normal Saline 240 ML 50 MG IV (20:25)
[2023-08-28] MEDS: niCARdipine 25 MG in Normal Saline 240 ML 150 MG IV (22:22)
== END 2023-08-28 22:23 | disposition short-term general hospital (02) ==
PROVIDERS: Emergency Medicine; Emergency Provider Emergency Medicine; PCP Family Medicine
DX: R42 Dizziness and giddiness (principal); R55 Syncope and collapse; I45.2 Bifascicular block; I62.9 Nontraumatic intracranial hemorrhage, unspecified; I10 Essential (primary) hypertension; Z91.128 Patient's intentional underdosing of medication regimen for other reason
CPT/HCPCS: 00123; 70496; 70498; 80053; 82962; 93005; 96365; 96366; 96375; 96376; 99285; 83735; 83880; 84484; 85025; 85610; 85730; 93010; J0360; J2404; J3490

== ENCOUNTER 2023-09-06 12:23 | Emergency (ER) | payer MEDICARE, SELFPAY ==
[2023-09-06] VITALS (38 sets, daily range): BP systolic 149–222; BP diastolic 46–84; PULSE 57–77; RESP 12–21; TEMP 36.6; O2SAT 98–99
--- NOTE | 2023-09-06 12:15 | RT.EKG_ITS ---
APPROVED REPORT Exam: Resting ECG Reason for Exam: dizziness Patient Location: E HR:73 bpm ECG Measurements Heart Rate 73 AXIS OR 165 P 72 QRSd 144 QRS -48 QT 443 T 9 QTc 490 Conclusion Sinus rhythm...normal P axis, V-rate 60- 99 RBBB and LAFB...QRSd >120mS, axis(-40,240) Probable left ventricular hypertrophy...(RaVL+SV3)xQRSd >280 Lateral infarct, age indeterminate...Q>35mS, T neg, V5-V6 I aVL
--- NOTE | 2023-09-06 12:30 | DI.CT_ITS ---
Exam(s) CT HEAD WO EXAM: CT HEAD WO CLINICAL HISTORY: ?hemorrhage, gait issues. TECHNIQUE: Imaging Protocol: Axial computed tomography images with coronal and sagittal reformatted images were created and reviewed COMPARISON: CT CT BRAIN NECK CTA from 08/28/2023 FINDINGS: Ventricles and Extra axial spaces: Normal in size and morphology for the patient's age. Hemorrhage: None. Cerebral parenchyma: No evidence of acute infarct or mass. Stable appearance of 6 millimeter mildly high attenuation focus in the left frontal parietal region superior to the left lateral ventricle. The lack of change makes unlikely to represent hemorrhage. No new abnormalities. Mild atrophy. Midline shift: None. Brainstem/Cerebellum: Normal. Calvarium: Normal. Visualized Paranasal sinuses:Clear. Mastoids: Clear. Soft Tissues: Left superior frontal sebaceous cyst. ORBITS: Unremarkable. PITUITARY: Not enlarged. IMPRESSION: No acute intracranial process. RADIATION DOSE DELIVERED: Total DLP DATA REPOSITORY: All CT scans at this facility are submitted to the National Radiology Data Registry (NRDR) Dose Index Registry (DIR) with the [employer] (ACR). RADIATION OPTIMIZATION: All CT scans at this facility use at least one of these dose optimization te chniques: automated exposure control; mA and/or kV adjustment per patient size (includes targeted exa ms where dose is matched to clinical indication); or iterative reconstruction.
--- NOTE | 2023-09-06 12:44 | W.ED.GENAD ---
Discharge Plan Disposition Patient Disposition: Home Condition: Stable Discharge Details Clinical Impression: Balance problem Primary Care Provider: Roxanne Garcia ED Provider: Jose Prakash Home Meds and New Rx's Prescriptions: Continued Alive Multivitamin PO cholecalciferol (vitamin D3) 1,000 unit capsule 1,000 unit PO DAILY magnesium glycinate 100 mg tablet 400 mg PO DAILY glucosamine [id number] 1 EACH tablet 1 ea PO BID fluticasone propionate 50 mcg/actuation spray,suspension 2 spray NS DAILY Qty: 3 3RF atorvastatin 40 mg tablet 40 mg PO DAILY Patient Comments: TAKE ONE TABLET BY MOUTH EVERY DAY carvedilol 3.125 mg tablet 3.125 mg PO BID Patient Comments: TAKE ONE TABLET BY MOUTH TWICE A DAY WITH MEALS Discharge Instructions Additional Instructions: It is likely that your symptoms are due to your body adjusting to the medications that you are on Follow-up as scheduled with your primary care provider in call our office ahead of time to let him know you are scheduling a follow-up visit after your admission to [facility]. If you feel more ill or have new symptoms such as severe chest pain or difficulty breathing or weakness on one side of the body return to the emergency department for reevaluation. HPI General Date/Time Provider Initiated Documentation: 09/06/23 12:28. Limitations to Documentation: no limitations. Information obtained by: patient. History of Present Illness 78 year old M presents to the emergency department with the chief complaint of unsteadiness, high bp, described as moderate, Patient started experiencing this hour(s) (2) and it has been constant. No relieving factors improve symptom(s), No exacerbating factors reported . Patient notes denies chest pain and shortness of breath. Patient did receive the following treatments prior to arrival, none Related Data Home Medications ?Medication ?Instructions ?Recorded ?Confirmed glucosamine HCl 500 mg-msm 83 1 ea PO BID 02/15/13 09/06/23 mg-chondroitin 400 mg tablet Alive Multivitamin PO 03/21/18 06/30/22 cholecalciferol (vitamin D3) 25 1,000 unit PO DAILY 03/21/18 09/06/23 mcg (1,000 unit) capsule magnesium glycinate 100 mg (as 400 mg PO DAILY 06/24/21 09/06/23 glycinate) tablet fluticasone propionate 50 2 spray NS DAILY #3 inhalations 01/12/23 09/06/23 mcg/actuation nasal spray,suspension atorvastatin 40 mg tablet 40 mg PO DAILY 09/06/23 09/06/23 carvedilol 3.125 mg tablet 3.125 mg PO BID 09/06/23 09/06/23 Previous Rx's ?Medication ?Instructions ?Recorded fluticasone propionate 50 2 spray NS DAILY #3 inhalations 01/12/23 mcg/actuation nasal spray,suspension Allergies Allergy/AdvReac Type Severity Reaction Status Date / Time codeine Allergy Unknown Unknown Verified 08/28/23 15:19 General Stated Complaint: CVA/TIA JUDI: 2 Review of Systems All systems reviewed & are unremarkable except as noted in HPI and below Constitutional Constitutional: Denies chills, Denies fever(s) and Denies weakness ENT Ears, Nose, Mouth, and Throat: Reports dizziness and Reports disequilibrium Cardiovascular Cardiovascular: Denies chest pain and Denies dyspnea Respiratory Respiratory: Denies cough and Denies dyspnea Gastrointestinal Gastrointestinal: Denies abdominal pain, Denies nausea and Denies vomiting Integumentary/Breasts Skin/Breast: Denies rash Neurologic Neurologic: Reports dizziness, Reports disequilibrium and Denies weakness Exam Const General: no acute distress Orientation: alert [facility] Head: normal to inspection Ears: external ears normal General nose exam: external nose normal Mouth: moist mucous membranes Eyes General: appearance normal, both eyes and all related structures Neck Neck: normal visual inspection Resp Effort & Inspection: normal respiratory effort and able to speak in complete sentences Cardio Rate: regular rate GI Palpation: soft and nontender Skin General skin exam: no rashes or lesions noted Neuro General: patient alert and patient oriented x3 Extrem General: normal to inspection Psych Mental Status: mental status grossly normal Course Vital Signs Vital signs: Vital Signs Temperature 36.6 C 09/06/23 12:26 Pulse 70 09/06/23 12:26 Respiratory Rate 18 09/06/23 12:26 Blood Pressure 176/68 H 09/06/23 12:26 Pulse Oximetry 99 09/06/23 12:26 Temperature 36.6 C 09/06/23 12:26 Pulse 70 09/06/23 12:26 Respiratory Rate 18 09/06/23 12:40 Respiratory Effort Normal, Non-Labored 09/06/23 12:40 Respiratory Depth Normal 09/06/23 12:40 Respiratory Pattern Normal 09/06/23 12:40 Blood Pressure 176/68 H 09/06/23 12:26 Blood Pressure Position Sitting 09/06/23 12:26 Pulse Oximetry 99 09/06/23 12:26 Oxygen Delivery Method Room Air 09/06/23 12:26 Oxygen Flow Rate 0 09/06/23 12:26 Medical Decision Making 78-year-old male with a history of hypertension who was seen a week ago and transferred to [facility] after having a CT showing potentially a hemorrhage was hypertensive and on a nicardipine drip, had a follow-up MRI there showing either posterior left frontal cavernoma versus less likely subacute hemorrhage. Was discharged on oral carvedilol and states he had been doing well until this morning around 10:30 AM when he started feeling unsteady similar last week his blood pressure was over 200 when he checked it so he came here. On my exam patient is noted to be hypertensive to over 200 systolic. He has no focal motor or sensation deficits he is speaking clearly. I did not stand him up because he says he still feels unsteady. On my exam he is NIH of 0. I am concerned due to his dizziness and recent presentation for hypertensive emergency versus worsening hemorrhage versus CVA, will start nicardipine drip and also obtain CBC, CMP, troponin and also CT of the head. And also consult neurology. Prior to nicardipine being started his blood pressure systolically lowered to 160. Will hold on nicardipine drip for now. Patient's BP 150 systolic over 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 Awaiting neurology consult. Patient met with neurology, labs unremarkable including delta troponin. Neurology was not convinced that this was a true TIA, states that the MRI that he had done did not show any ischemic findings so not sure if aspirin would actually benefit him but did not formally recommend stopping it. He also said that the atorvastatin may not be necessary but to have him follow-up with outpatient neurology to discuss this. Do not have any other formal recommendations. Test results patient is hemodynamically stable and has no symptoms. I did discuss with him that he could just be adjusting to the new medications including the carvedilol. I did advise that he should try and move slowly from standing to sitting and make sure he staying hydrated. He is stable for discharge and will follow-up with his PCP and neurology and return precautions given. Differential Diagnosis Differential Diagnosis: Hypertensive emergency, TIA, hemorrhage Medical Records Medical records reviewed: Yes I reviewed the patient's medical records. Imaging Data Radiologic Study: Attestation: I personally reviewed and interpreted this imaging study as follows: Imaging: CT Scan Radiologist's impression: IMPRESSION: No acute intracranial process. Lab Data Lab results reviewed: Yes I reviewed the patient's lab results. ECG Data Attestation: I personally reviewed and interpreted this ECG (s) as follows: Prior ECG tracings: available for review Interpretation: sinus rate of 73 no stemi, rbb and lafb similar to prior Quality:SDOH Health Related Social Needs: No Data to Display PFSH All Active Problems (Updated 09/06/23 @ 16:07 by Jose Prakash MD) Balance problem (Acute) ICH (intracerebral hemorrhage) (Acute) Hypertensive emergency (Acute) White coat syndrome with high blood pressure but without hypertension (Acute) Renal insufficiency (Chronic) AC separation, type 2 (Acute 10/21/20) Hypercholesterolemia (Acute 01/15/08) Muscle cramps (Acute 03/11/15) Sensory hearing loss, bilateral (Acute 04/01/14) Medical History (Updated 09/06/23 @ 16:07 by Jose Prakash MD) Squamous cell carcinoma Family History (Updated 06/18/20 @ 14:17 by Ayanna Mas) Mother Neoplasm UTERINE Father Aortic aneurysm Grandfather Heart disease Grandmother Diabetes Social History (Updated 06/18/20 @ 14:16 by Ayanna Mas) Smoking/Tobacco Use Status: Never Second Hand Exposure: Yes Smoking risk assessment performed?: Yes Alcohol Intake: current Alcohol Intake frequency: holidays/special occasions only Alcohol type: wine Drug use: Never Substance use type: does not use Caregiver/Support person: No Household members: spouse Housing: house Communication Needs: Hard of Hearing Do you need help understanding health information?: Never current occupation: retired Pets and animals: No Sexually active: No Do you think of yourself as: straight/heterosexual Current gender identity: male What is your relationship status?: How often do you talk on the phone with friends or family?: decline to answer How often do you get together with friends or relatives?: twice per week How often do you attend anabaptism or episcopalian services?: decline to answer Do you belong to any clubs or organized social groups?: yes Panel score (0-1 are the most socially isolated patients): 2 What type of physical activity do you participate in: weight lifting Duration: 15-30 minutes/day Frequency: 3-4 times per week Special tia needs: No Seatbelt use: always Drive intox or 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
[2023-09-06 12:52] LABS: Abs Immature Grans 0.01 10^3/uL (0.0-0.06); Absolute Basophil Count 0.02 10^3/uL (0.0-0.2); Absolute Eosinophil Count 0.17 10^3/uL (0.0-0.7); Absolute Monocyte Count 0.58 10^3/uL (0.1-0.8); Absolute Neutrophil Count 3.73 10^3/uL (1.2-6.7); Basophils % 0.3 %; Eosinophils % 2.8 %; HCT 43.8 % (40.0-50.0); HGB 14.2 g/dL (13.5-17.5); Immature Grans % 0.2 %; Lymphocytes % 26.2 %; MCH 30.1 pg (27.0-33.0); MCHC 32.4 % (32.0-36.0); MCV 93 fL (80-95); MPV 11.8 fL (8.0-11.0); Monocytes % 9.5 %; Platelet Count 281 10^3/uL (130-400); RBC 4.71 10^6/uL (4.36-5.78); RDW 12.4 % (11.8-14.1); RDW-SD 42.8 fL; WBC 6.11 10^3/uL (4.4-10.8)
[2023-09-06 13:11] LABS: INR 1.1 (0.9-1.1); PTT Activated 26.3 sec (23.6-32.8); Prothrombin Time 11.2 sec (9.1-11.1)
[2023-09-06 13:16] LABS: Troponin I < 50 ng/L (< or =60)
[2023-09-06 13:24] LABS: ALT 35 U/L (16-63); AST 20 U/L (15-37); Alkaline Phosphatase 84 U/L (46-116); Anion Gap 6.2 mmol/L (3-11); BUN 22 mg/dL (7-18); Bilirubin, Total 0.64 mg/dL (0.2-1.0); CO2 34.8 mmol/L (21.0-32.0); CREATININE 1.3 mg/dL (0.70-1.30); Calcium 9.9 mg/dL (8.5-10.1); Chloride 107 mmol/L (98-107); Estimated GFR 56.93 (mL/min/1.73m2); Glucose 137 mg/dL (74-106); Magnesium 2.2 mg/dL (1.8-2.4); Potassium 4.1 mmol/L (3.5-5.1); Sodium 148 mmol/L (136-145); TSH (W/Ref FT4) 4.42 uIU/mL (0.36-3.74)
[2023-09-06 13:39] LABS: FREE T4 0.86 ng/dL (0.76-1.46)
[2023-09-06 15:13] LABS: Troponin I < 50 ng/L (< or =60)
--- NOTE | 2023-09-07 02:16 | NUR.NOTE ---
Teleneuro report sent down to medical records.
== END 2023-09-06 16:12 | disposition home or self-care (01) ==
PROVIDERS: Emergency Provider Emergency Medicine; PCP Family Medicine
DX: R26.89 Other abnormalities of gait and mobility (principal); I10 Essential (primary) hypertension; Z86.79 Personal history of other diseases of the circulatory system
CPT/HCPCS: 36415; 80053; 93005; 99284; 70450; 83735; 84439; 84443; 84484; 85025; 85610; 85730; 93010; 99283

== ENCOUNTER 2023-09-12 18:53 | Outpatient (REF) | payer MEDICARE, SELFPAY ==
[2023-09-15 21:39] LABS: Metanephrines, U 186 mcg/24 h; Normetanephrine, U 240 mcg/24 h; Total Metanephrines, U 426 mcg/24 h; Urine Volume 1500 mL
[2023-09-19 16:33] LABS: Urine Volume 1500 mL
== END 2023-09-12 18:54 | disposition home or self-care (01) ==
LOC: NCHCN 18:53
PROVIDERS: PCP Family Medicine; Visit Provider Family Medicine
DX: I10 Essential (primary) hypertension (principal)
CPT/HCPCS: 81050; 82384; 83835

== ENCOUNTER 2023-12-19 21:06 | Outpatient (REF) | payer MEDICARE, SELFPAY ==
[2023-12-19 22:03] LABS: Anion Gap 5.7 mmol/L (3-11); BUN 22 mg/dL (7-18); CO2 33.3 mmol/L (21.0-32.0); CREATININE 1.3 mg/dL (0.70-1.30); Calcium 10.3 mg/dL (8.5-10.1); Chloride 107 mmol/L (98-107); Estimated GFR 56.93 (mL/min/1.73m2); FREE T4 0.81 ng/dL (0.76-1.46); Glucose 104 mg/dL (74-106); Potassium 5.1 mmol/L (3.5-5.1); Sodium 146 mmol/L (136-145); TSH 2.93 uIU/mL (0.36-3.74)
== END 2023-12-19 21:07 | disposition home or self-care (01) ==
LOC: NCHCN 21:06
PROVIDERS: PCP Family Medicine; Visit Provider Family Medicine
DX: E04.1 Nontoxic single thyroid nodule (principal)
CPT/HCPCS: 80048; 84439; 84443

== ENCOUNTER 2024-03-19 21:10 | Outpatient (REF) | payer MEDICARE, SELFPAY ==
[2024-03-19 22:41] LABS: Anion Gap 6.1 mmol/L (3-11); BUN 25 mg/dL (7-18); CO2 32.9 mmol/L (21.0-32.0); CREATININE 1.4 mg/dL (0.70-1.30); Calcium 10.1 mg/dL (8.5-10.1); Chloride 106 mmol/L (98-107); Estimated GFR 51.77 (mL/min/1.73m2); Glucose 77 mg/dL (74-106); Potassium 5.1 mmol/L (3.5-5.1); Sodium 145 mmol/L (136-145); Vitamin B12 870 pg/mL (193-986)
== END 2024-03-19 21:11 | disposition home or self-care (01) ==
LOC: NCHCN 21:10
PROVIDERS: PCP Family Medicine; Visit Provider Family Medicine
DX: I15.8 Other secondary hypertension (principal); R26.89 Other abnormalities of gait and mobility
CPT/HCPCS: 80048; 82607

== ENCOUNTER 2024-06-19 22:18 | Outpatient (REF) | payer MEDICARE, SELFPAY ==
[2024-06-19 22:41] LABS: FREE T4 0.78 ng/dL (0.76-1.46); TSH 2.44 uIU/mL (0.36-3.74)
== END 2024-06-19 22:19 | disposition home or self-care (01) ==
LOC: NCHCN 22:18
PROVIDERS: PCP Family Medicine; Visit Provider Family Medicine
DX: E03.8 Other specified hypothyroidism (principal)
CPT/HCPCS: 84439; 84443

== ENCOUNTER 2024-07-12 11:08 | Outpatient (CLI) | payer MEDICARE, SELFPAY ==
[2024-07-12 12:40] LABS: TSH 2.59 uIU/mL (0.36-3.74)
[2024-07-12 17:48] LABS: Thyroperoxidase Antibody <28 U/mL (<=60)
== END 2024-07-12 11:09 | disposition home or self-care (01) ==
LOC: LBO 11:08
PROVIDERS: PCP Family Medicine; Visit Provider Student in an Organized Health Care Education/Training Program
DX: E04.1 Nontoxic single thyroid nodule (principal)
CPT/HCPCS: 36415; 84443; 86376

== ENCOUNTER 2024-12-31 11:11 | Outpatient (REF) | payer MEDICARE, OTHER, SELFPAY ==
[2024-12-31 16:27] LABS: Anion Gap 6.1 mmol/L (3-11); BUN 21 mg/dL (9-23); CO2 30.9 mmol/L (20.0-31.0); Calcium 9.9 mg/dL (8.3-10.6); Chloride 107 mmol/L (98-107); Cholesterol 199 mg/dL (<200); Glucose 85 mg/dL (74-106); HDL Cholesterol 76 mg/dL (>40); Potassium 4.5 mmol/L (3.5-5.1); Sodium 144 mmol/L (136-145)
[2025-01-01 10:20] LABS: PSA, Screening 7.7 ng/mL (<=6.5)
== END 2024-12-31 11:12 | disposition home or self-care (01) ==
LOC: NCHCN 11:11
PROVIDERS: PCP Family Medicine; Visit Provider Family Medicine
DX: Z13.220 Encounter for screening for lipoid disorders (principal); N28.9 Disorder of kidney and ureter, unspecified; Z12.5 Encounter for screening for malignant neoplasm of prostate
CPT/HCPCS: 80048; 80061; 84153